=== PATIENT | female | born 1975 ===

== ENCOUNTER 2017-02-14 12:14 | Observation (INO) | payer MEDICAID ==
[2017-02-14 12:49] VITALS: PULSE 60; O2SAT 100
[2017-02-14 14:18] LABS: BASO % 0.6 % (0.0-2.0); EOS # 0.1 K/uL (0.0-0.7); EOS % 1.7 % (0.0-4.0); HEMOGLOBIN 11.7 g/dL (11.0-16.0); LYMPH # 1.7 K/uL (1.0-4.3); LYMPH % 24.9 % (20.0-40.0); MEAN CELL VOLUME 81.2 fL (81.0-99.0); MEAN CORPUSCULAR HEMOGLOBIN 26.2 pg (27.0-31.0); MEAN CORPUSCULAR HGB CONC 32.3 g/dL (33.0-37.0); MEAN PLATELET VOLUME 8.4 fL (7.2-11.7); MONO # 0.3 K/uL (0.0-0.8); NEUT # 4.6 K/uL (1.8-7.0); NEUT % 68.8 % (50.0-75.0); RBC 4.45 Mil/uL (3.80-5.20); RED CELL DISTRIBUTION WIDTH 19.3 % (11.5-14.5); WHITE BLOOD COUNT 6.7 K/uL (4.8-10.8)
[2017-02-14 14:20] LABS: SQUAMOUS EPITHIAL 3 /hpf (0-5); URINE BILIRUBIN NEGATIVE (NEGATIVE); URINE BLOOD NEGATIVE (NEGATIVE); URINE CLARITY Clear (Clear); URINE COLOR Yellow (YELLOW); URINE GLUCOSE (UA) NORMAL (Normal); URINE LEUKOCYTE ESTERASE NEG Leu/uL (Negative); URINE NITRATE NEGATIVE (NEGATIVE); URINE PROTEIN NEGATIVE (NEGATIVE); URINE UROBILINOGEN NORMAL mg/dL (0.2-1.0)
--- NOTE | 2017-02-14 14:25 | C.PDOC ---
History Of Present Illness Patient is a 41 y/o female, 10 weeks , that presents to the ED for evaluation of suprapubic abdominal pain, and vaginal bleeding since yesterday. Patient reports being seen at [facility], where she had ultrasound a prior US and confirmed an IUP, and is getting pre- care there. Patient admits to headache, otherwise, denies any back pain, nausea, vomiting, fever, chills, or any other associated symptoms at this time. OB : [facility] Time Seen by Provider: 02/14/17 12:55 Chief Complaint (Nursing): Female Genitourinary History Per: Patient History/Exam Limitations: no limitations Onset/Duration Of Symptoms: Days (1) Current Symptoms Are (Timing): Still Present Quality Of Discomfort: "Pain" Associated Symptoms: denies: Fever, Chills, Nausea, Vomiting, Diarrhea, Loss Of Appetite, Back Pain, Chest Pain, Constipation, Urinary Symptoms Alleviating Factors: None Recent travel outside of the [place]: No Additional History Per: Patient Abnormal Vaginal Bleeding: Yes Past Medical History Reviewed: Historical Data, Nursing Documentation, Vital Signs Vital Signs: Last Vital Signs Temp 98.6 F 02/14/17 16:26 Pulse 60 02/14/17 16:26 Resp 16 02/14/17 16:26 BP 94/57 L 02/14/17 16:26 Pulse Ox 100 02/14/17 16:26 - Medical History PMH: Denies: Diabetes - [facility] Procedures INJECT/INFUSE NEC (05/25/14) Family History: States: Unknown Family Hx - Social History Hx Tobacco Use: No Hx Alcohol Use: Yes Hx Substance Use: No Review Of Systems Except As Marked, All Systems Reviewed And Found Negative. Constitutional: Negative for: Fever, Chills Gastrointestinal: Positive for: Abdominal Pain. Negative for: Nausea, Vomiting , Diarrhea, Constipation Genitourinary: Positive for: Vaginal Bleeding. Negative for: Dysuria, Frequency , Incontinence, Hematuria Musculoskeletal: Negative for: Back Pain Skin: Negative for: Rash Neurological: Positive for: Headache. Negative for: Dizziness Physical Exam - Physical Exam Appears: Non-toxic, No Acute Distress Skin: Normal Color, Warm, Dry Head: Atraumatic, Normacephalic Eye(s): bilateral: Normal Inspection Oral Mucosa: Moist Neck: Normal ROM, Supple Chest: Symmetrical Cardiovascular: Rhythm Regular, No Murmur Respiratory: Normal Breath Sounds, No Accessory Muscle Use, No Rales, No Rhonchi , No Wheezing Gastrointestinal/Abdominal: Soft, Tenderness (mild suprapubic), No Guarding, No Rebound Back: Normal Inspection, No CVA Tenderness, No Vertebral Tenderness Extremity: Normal ROM, No Deformity Extremity: Bilateral: Atraumatic Neurological/Psych: Oriented x3, Normal Speech, Normal Cognition ED Course And Treatment - Laboratory Results Result Diagrams: 02/14/17 14:13 02/14/17 14:13 O2 Sat by Pulse Oximetry: 100 (on RA) Pulse Ox Interpretation: Normal - CT Scan/US Preg US Other Rad Studies (CT/US): Read By Radiologist, Radiology Report Reviewed CT/US Interpretation: Findings: The uterus measures approximately 14.7 x 4.6 x 8.1 cm. Anteverted. Cervix length measures approximately 4 cm. Trace fluid in the cervix. Probable mid right uterine fibroid measures approximately 1.1 x 0.7 x 0.8 cm. Probable mid uterine fibroid measures approximately 1.1 x 0.9 x 1.1 cm. 4 mm hypoechoic focus and 7 mm hypoechoic focus, nonspecific. There is a single intrauterine fetus present. The gestational sac measures 2.7 cm and is compatible with a gestational age of 7 weeks 4 days. The crown-rump length measures 1.8 cm and is compatible with a gestational age of 8 weeks 2 days. heart rate is not detected. The right ovary measures 2.3 x 1.9 x 1.9 cm. The left ovary measures 2.8 x 2.1 x 2.3 cm. Blood flow was demonstrated to both ovaries. Impression: Single intrauterine with estimated gestational age 7 weeks 4 days by gestational sac calculation and 8 weeks 2 days by crown- rump length calculation. heart rate is not detected. Correlate clinically. Two probable uterine fibroids as above. 4 mm and 7 mm hypoechoic foci appear within the endometrial canal, nonspecific cystic appearing foci. Trace fluid in the cervix. Medical Decision Making Medical Decision Makin41 y/o female, 10 weeks , that presents to the ED for evaluation of suprapubic abdominal pain, and vaginal bleeding since yesterday. Blood work, urinalysis, pelvis ultrasound ordered and reviewed. Patient was treated with Tylenol for her headache. Pt placed in ED observation for further evaluation and treatment. ED OBSERVATION Date of observation admission: 02/14/17 Time of observation admission: 14:39 - Observation admission statement Patient is being placed in observation because:: Pending Ultrasound - Goals of Observation Goals of observation are:: Monitor signs and symptoms - Progress Note Progress Note: 02/14/17 14:40 Patient is resting comfortably, no acute distress. Reports no increase in vaginal bleeding or abdominal pain. Still pending US. 02/14/17 16:00 Labs and US results reviewed : Beta quant [id number] Type and screen O+ US TV : shows 7 wks 4 d gestation with no FHR. US and lab results d/w the pt in great detail. Pt informed of the likely dx of miscarriage. Pt informed that she will continue to have vaginal bleeding and continued abdominal pain due to the potential miscarriage. Advised to f/u with her OB at [facility] in 1-2 days without fail for re-evaluation. Return to the ER at any time for any new or worsening symptoms. Pt states that she understands the dx and instructions for f/u, states that she feels comfortable going home. Disposition Counseled Patient/Family Regarding: Studies Performed, Diagnosis, Need For Followup - Disposition Disposition: HOME/ ROUTINE Disposition Time: 13:45 (Pt placed in ED observation) Condition: STABLE - Clinical Impression Clinical Impression: Miscarriage - PA / STORE MERCHANDISER / Resident Statement MD/DO has reviewed & agrees with the documentation as recorded. - Scribe Statement The provider has reviewed the documentation as recorded by the Alberibe Leonard Beltran All medical record entries made by the Deric were at my direction and personally dictated by me. I have reviewed the chart and agree that the record accurately reflects my personal performance of the history, physical exam, medical decision making, and the department course for this patient. I have also personally directed, reviewed, and agree with the discharge instructions and disposition.
[2017-02-14 14:43] LABS: ALBUMIN 4.1 g/dL (3.5-5.0)
[2017-02-14 14:46] LABS: ALB/GLOB RATIO 1.3 (1.0-2.1); AST/SGOT 15 U/L (14-36); BLOOD UREA NITROGEN 11 mg/dL (7-17); GFR AFRICAN-AMERICAN > 60; GFR NON-AFRICAN AMERICAN > 60
[2017-02-14 14:47] LABS: ALT/SGPT 20 U/L (9-52); CALCIUM 9.3 mg/dl (8.6-10.4)
--- NOTE | 2017-02-14 15:25 | US ---
Indication: 10 wks , abd pain, vag bleed Comparison: Pelvic ultrasound performed 05/01/13 Technique: Real-time transabdominal pelvic ultrasound was performed. In addition a transvaginal pelvic ultrasound was necessary to better depict pelvic anatomy. Findings: The uterus measures approximately 14.7 x 4.6 x 8.1 cm. Anteverted. Cervix length measures approximately 4 cm. Trace fluid in the cervix. Probable mid right uterine fibroid measures approximately 1.1 x 0.7 x 0.8 cm. Probable mid uterine fibroid measures approximately 1.1 x 0.9 x 1.1 cm. 4 mm hypoechoic focus and 7 mm hypoechoic focus, nonspecific. There is a single intrauterine fetus present. The gestational sac measures 2.7 cm and is compatible with a gestational age of 7 weeks 4 days. The crown-rump length measures 1.8 cm and is compatible with a gestational age of 8 weeks 2 days. heart rate is not detected. The right ovary measures 2.3 x 1.9 x 1.9 cm. The left ovary measures 2.8 x 2.1 x 2.3 cm. Blood flow was demonstrated to both ovaries. Impression: Single intrauterine with estimated gestational age 7 weeks 4 days by gestational sac calculation and 8 weeks 2 days by crown-rump length calculation. heart rate is not detected. Correlate clinically. Two probable uterine fibroids as above. 4 mm and 7 mm hypoechoic foci appear within the endometrial canal, nonspecific cystic appearing foci. Trace fluid in the cervix.
[2017-02-14 16:27] VITALS: BP 94/57; RESP 16; TEMP 98.6
== END 2017-02-14 16:19 | disposition home or self-care (01) ==
LOC: C.ER 12:14 → C.9OBSV 13:45
PROVIDERS: ADMIT Emergency Medicine; ATTEND Emergency Medicine
DX: O03.9 Complete or unspecified spontaneous abortion without complication (principal); N93.9 Abnormal uterine and vaginal bleeding, unspecified